=== PATIENT | female | born 1995 | race African-American/Black ===

== ENCOUNTER 2017-10-21 10:10 | Inpatient (IN) | END 2017-10-23 15:10 | disposition home or self-care (01) | DRG 782 ==

== ENCOUNTER 2017-10-25 14:55 | Outpatient (CLI) | END 2017-10-25 17:00 | disposition home or self-care (01) ==

== ENCOUNTER 2017-10-30 14:17 | Outpatient (CLI) | END 2017-10-30 16:50 | disposition home or self-care (01) ==

== ENCOUNTER 2017-11-05 14:15 | Outpatient (CLI) | END 2017-11-05 20:11 | disposition home or self-care (01) ==

== ENCOUNTER 2017-11-08 15:45 | Outpatient (CLI) | END 2017-11-08 16:45 | disposition home or self-care (01) ==

== ENCOUNTER 2017-11-14 10:39 | Outpatient (CLI) | END 2017-11-14 13:45 | disposition home or self-care (01) ==

== ENCOUNTER 2017-11-16 19:40 | Inpatient (IN) | END 2017-11-19 16:20 | disposition home or self-care (01) | DRG 775 ==